=== PATIENT | female | born 1985 | race Hispanic/Latino ===

== ENCOUNTER 2017-03-02 17:24 | Emergency (ER) | payer BC ==
[2017-03-02 17:33] VITALS: BP 124/80; PULSE 75; RESP 16; TEMP 98.1; O2SAT 97
--- NOTE | 2017-03-02 18:05 | ED PDOC ---
HPI: Allergic Reaction Time Seen by Provider: 03/02/17 17:31 Chief Complaint (Nursing): Allergic Reaction Chief Complaint (Provider): Allergic Reaction History Per: Patient History/Exam Limitations: no limitations Onset/Duration Of Symptoms: Mins (x1 hour prior to arrival) Current Symptoms Are (Timing): Still Present Context: Other Possible Cause: Medication Associated Symptoms: Skin Rash, Itching Home/EMS Treatment: Benadryl Pain Scale Rating Of: 4 Additional Complaint(s): Barry Shelton, a 31 year old female, presents to the ED for an allergic reaction. The patient states that around 1500 she took dayquil to for congestion and then 20 minutes prior to arrival she began to develop symptoms. She reports that she feels as though she is burning from the inside. The patient states that she has had a history of allergic reactions to medication( Pineda, Aleve, Delsym, Bactrim) in the past. Patient took 25mg Bendaryl prior to coming to the ED. Of note: Patient has not seen an photographs curator Past Medical History Reviewed: Historical Data, Nursing Documentation, Vital Signs Vital Signs: Last Vital Signs Temp 98.1 F 03/02/17 17:25 Pulse 75 03/02/17 17:25 Resp 16 03/02/17 17:25 BP 124/80 03/02/17 17:25 Pulse Ox 97 03/02/17 17:25 - Medical History PMH: No Chronic Diseases - Surgical History Surgical History: No Surg Hx - Family History Family History: States: Unknown Family Hx - Living Arrangements Living Arrangements: With Family - Social History Current smoker - smoking cessation education provided: No Ex-Smoker (has not smoked in the last 12 months): No Alcohol: Social Drugs: Denies - Home Medications Home Medications: Ambulatory Orders Medication Instructions Recorded DiphenhydrAMINE [Benadryl] 50 mg PO Q6 PRN #24 cap 04/18/15 Famotidine [Pepcid] 20 mg PO BID #10 tab 04/18/15 Prednisone 3 tab PO DAILY #12 tab 04/18/15 DiphenhydrAMINE [Benadryl] 50 mg PO Q6H PRN #20 cap 03/02/17 predniSONE [predniSONE Tab] 20 mg PO DAILY #12 tab 03/02/17 - Allergies Allergies/Adverse Reactions: Allergies Allergy/AdvReac Type Severity Reaction Status Date / Time drospirenone [From PINEDA (28)] Allergy RASH Verified 03/02/17 17:32 ethinyl estradiol Allergy RASH Verified 03/02/17 17:32 [From PINEDA (28)] ibuprofen Allergy RASH Verified 03/02/17 17:32 [From DayQuil Sinus Pressure/Pain] naproxen [From Aleve] Allergy RASH Verified 03/02/17 17:32 pseudoephedrine Allergy RASH Verified 03/02/17 17:32 [From DayQuil Sinus Pressure/Pain] sulfamethoxazole Allergy RASH Verified 03/02/17 17:32 [From Bactrim] trimethoprim [From Bactrim] Allergy RASH Verified 03/02/17 17:32 Review of Systems ROS Statement: Except As Marked, All Systems Reviewed And Found Negative Constitutional: Positive for: Other (Allergic reaction) Physical Exam - Reviewed Nursing Documentation Reviewed: Yes Vital Signs Reviewed: Yes - Physical Exam Appears: Positive for: Non-toxic, No Acute Distress Head Exam: Positive for: ATRAUMATIC, NORMAL INSPECTION, NORMOCEPHALIC Skin: Positive for: Normal Color (Sporadic areas of mild blanching erythema), Warm, Dry. Negative for: Rash Eye Exam: Positive for: Normal appearance ENT: Positive for: Normal ENT Inspection Neck: Positive for: Normal Cardiovascular/Chest: Positive for: Regular Rate, Rhythm, Chest Non Tender. Negative for: Tachycardia Respiratory: Positive for: Normal Breath Sounds. Negative for: Wheezing, Respiratory Distress Neurologic/Psych: Positive for: Alert, Oriented, Gait - ECG O2 Sat by Pulse Oximetry: 97 (RA) Pulse Ox Interpretation: Normal - Progress ED Course And Treament: 1731 Initial Impression 31 y/o female presenting with allergic reaction Initial Plan: * Benadryl 25mg PO * Solu-Medrol 125mg IM * Reevaluation Scribe Attestation Documented by Shantel Rodriguez acting as a scribe for Payal Aldana PA-C. MD Scribe Attestation All medical record entries made by the Scribe were at my direction and personally dictated by me. I have reviewed the chart and agree that the record accurately reflects my personal performance of the history, physical exam, medical decision making, and the department course for this patient. I have also personally directed, reviewed, and agree with the discharge instructions and disposition. Disposition - Clinical Impression Clinical Impression: Allergic reaction - Patient ED Disposition Is Patient to be Admitted: No - Disposition Disposition: Routine/Home Disposition Time: 17:50 Condition: GOOD Prescriptions: DiphenhydrAMINE [Benadryl] 50 mg PO Q6H PRN #20 cap PRN Reason: Itching / Pruritus predniSONE [predniSONE Tab] 20 mg PO DAILY #12 tab Instructions: General Allergic Reaction (ED) Forms: [facility] (Mongolian) - POA Present On Arrival: None
== END 2017-03-02 18:48 | disposition home or self-care (01) ==
LOC: H.ER 17:24
DX: T78.40XA Allergy, unspecified, initial encounter (principal)
CPT/HCPCS: 96372; 99282; J2930